=== PATIENT | male | born 1980 | race African-American/Black ===

== ENCOUNTER 2018-10-19 17:34 | Emergency (ER) | payer OTHER ==
[~2018-10-19] VITALS: Ht 177.8 cm; Wt 120.2 kg
[~2018-10-19 17:34] MED LIST: TRAM50TA PO
[2018-10-19 17:49] VITALS: BP 129/73
--- NOTE | 2018-10-19 19:41 | RAD ---
Examination: ABDOMEN SUPINE UPRIGHT History: swallowed plastic water cap; now with nausea and abd pain Comparison/Correlation: None Findings: Frontal views of the abdomen were obtained. Moderate quantity of stool involves the proximal hemicolon. No obstruction. No extraluminal gas. No radiopaque foreign body identified. Bony structures are grossly unremarkable. Impression: No radiopaque foreign body identified. Electronically signed by: Jayson Brown MD (10/19/2018 7:36 PM) [facility]
[2018-10-19] MEDS ORDERED: RANI-376 PO (20:48)
--- NOTE | 2018-10-19 20:49 | PHYS DOC ---
Past Medical History Past Medical History: Anxiety, Hypertension, Other Additional Past Medical Histor: PLEURISY, COSTOCHONDRITIS Past Surgical History: No Surgical History Alcohol Use: Occasionally Drug Use: None Adult General Chief Complaint Chief Complaint: OTHER COMPLAINTS [facility] HPI Patient is a 38-year-old male who presents with complaint of epigastric discomfort and burning in his lower chest. Patient indicates that last night he had accidentally swallowed the cap to a water bottle. Patient indicates he has no difficulty with swallowing and denies any chest pain, shortness of breath or cough. Review of Systems Review of Systems Constitutional: Denies fever or chills [] Respiratory: Denies cough or shortness of breath [] Cardiovascular: No additional information not addressed in HPI [] GI: Complains of epigastric burning without nausea, vomiting or diarrhea [] Integument: Denies rash or skin lesions [] Allergies Allergies Allergies Coded Allergies Type Severity Reaction Last Updated Verified No Known Drug Allergies 11/29/13 No Physical Exam Physical Exam Constitutional: Well developed, well nourished, no acute distress, non-toxic appearance. [] Neck: Normal range of motion, no tenderness, supple, no stridor. [] Cardiovascular: Regular rate and rhythm[] Lungs & Thorax: Bilateral breath sounds clear to auscultation [] Abdomen: Bowel sounds normal, soft, no tenderness. [] Skin: Warm, dry, no erythema, no rash. [] Current Patient Data Vital Signs Vital Signs Date Time Temp Pulse Resp B/P (MAP) Pulse Ox O2 Delivery O2 Flow Rate FiO2 10/19/18 17:49 98.8 81 16 129/73 (91) 98 Room Air 98.8 EKG EKG [] Radiology/Procedures Radiology/Procedures [] Impressions: Two-view abdomen was obtained and demonstrates no acute abnormalities. Course & Med Decision Making Course & Med Decision Making Pertinent Labs and Imaging studies reviewed. (See chart for details) [] Dragon Disclaimer Dragon Disclaimer This electronic medical record was generated, in whole or in part, using a voice recognition dictation system. Departure Departure Impression: Primary Impression: GERD (gastroesophageal reflux disease) Additional Impression: Foreign body ingestion Disposition: HOME, SELF-CARE Condition: STABLE Referrals: SEJAL MEDRANO DO (PCP) Patient Instructions: Diet for Gastroesophageal Reflux Disease, Adult, Swallowed Foreign Body, Adult Scripts Ranitidine Hcl (ZANTAC) 150 Mg Tablet 1 TAB PO BID, #30 Prov: ANGELINA JACOBS Jr. DO 10/19/18 Problem Qualifiers Primary Impression: GERD (gastroesophageal reflux disease) Esophagitis presence: esophagitis presence not specified Qualified Codes: K21.9 - Gastro-esophageal reflux disease without esophagitis Additional Impression: Foreign body ingestion Encounter type: initial encounter Qualified Codes: T18.9XXA - Foreign body of alimentary tract, part unspecified, initial encounter ANGELINA JACOBS Jr. DO Oct 19, 2018 20:48
== END 2018-10-19 21:18 | disposition home or self-care (01) ==
LOC: ER 17:34
DX: K21.9 Gastro-esophageal reflux disease without esophagitis (principal); T18.9XXA Foreign body of alimentary tract, part unspecified, initial encounter; R07.89 Other chest pain; I10 Essential (primary) hypertension; F41.9 Anxiety disorder, unspecified; X58.XXXA Exposure to other specified factors, initial encounter; Y93.89 Activity, other specified; Y92.89 Other specified places as the place of occurrence of the external cause; Y99.8 Other external cause status
CPT/HCPCS: 74021; 99283